=== PATIENT | male | born 1990 | race Caucasian/White ===

== ENCOUNTER 2016-10-30 15:29 | Emergency (ER) | payer BC ==
[2016-10-30 16:18] VITALS: BP 164/99
--- NOTE | 2016-10-30 16:53 | UC ---
General HPI - HPI Summary HPI Summary: 26 y/o male c/o "extreme fatigue", fever-like symptoms, and feeling nauseated which worsened today. Denies vomiting, changes in BM, headaches, myalgia, arthralgia, or skin changes. Patient is concerned about lyme disease, removed 3 ticks in the past week within 24 hours of attachment, removed one tick two weeks ago. - History of Current Complaint Chief Complaint: UCGeneralIllness Stated Complaint: MULTIPLE FLEA BITES Time Seen by Provider: 10/30/16 16:34 Hx Obtained From: Patient Onset/Duration: Sudden Onset Associated Signs & Symptoms: Positive: Fever, Nausea, Other - Fatigue. Negative : Back Pain, Cough, Dizziness, Headache, SOB - Allergy/Home Medications Allergies/Adverse Reactions: Allergies Allergy/AdvReac Type Severity Reaction Status Date / Time Sulfa Antibiotics Allergy Unknown Verified 10/30/16 16:19 Reaction Details Home Medications: Home Medications NK [No Home Medications Reported] 10/30/16 [History Confirmed 10/30/16] PMH/Surg Hx/FS Hx/Imm Hx Previously Healthy: Yes Endocrine History Of: Denies: Diabetes, Thyroid Disease Cardiovascular History Of: Reports: Hypertension - no tx Denies: Cardiac Disorders Respiratory History Of: Denies: COPD, Asthma GI/ History Of: Denies: Ulcer Neurological History Of: Denies: TIA, CVA, Dementia, Seizures, Migraine Psychological History Of: Denies: Anxiety, Depression, Bipolar Disorder, Schizophrenia, Post Traumatic Stress Disorder - Surgical History Surgical History: None - Family History Known Family History: Positive: Unknown - Social History Occupation: Employed Full-time Alcohol Use: Daily Substance Use Type: Marijuana Substance Use Comment - Amount & Last Used: daily Smoking Status (MU): Heavy Every Day Tobacco Smoker Type: Pipe Amount Used/How Often: 5 per day - Immunization History Most Recent Influenza Vaccination: denies Review of Systems Constitutional: Fever - "Fever-like symptoms", Fatigue Skin: Negative Eyes: Negative ENT: Nasal Discharge, Other - Nasal congestion Respiratory: Negative Cardiovascular: Negative Gastrointestinal: Other - Feelign nauseated Genitourinary: Negative Motor: Negative Neurovascular: Negative Musculoskeletal: Negative Neurological: Negative Psychological: Negative All Other Systems Reviewed And Are Negative: Yes Physical Exam Triage Information Reviewed: Yes Appearance: Well-Appearing, No Pain Distress Vital Signs: Initial Vital Signs Temp 98.7 F 10/30/16 16:09 Pulse 79 10/30/16 16:09 Resp 18 10/30/16 16:09 BP 164/99 10/30/16 16:09 Pulse Ox 100 10/30/16 16:09 Vital Signs Reviewed: Yes Eye Exam: Normal Eyes: Positive: Conjunctiva Clear ENT: Positive: Hearing grossly normal, Pharyngeal erythema, Nasal congestion, Nasal drainage, TMs normal Dental Exam: Normal Dental: Negative: Cervical Lymphadenopathy Neck exam: Normal Neck: Positive: Supple, Nontender, No Lymphadenopathy Respiratory Exam: Normal Respiratory: Positive: Chest non-tender, Lungs clear, Normal breath sounds Cardiovascular Exam: Normal Cardiovascular: Positive: RRR, No Murmur, Pulses Normal Abdominal Exam: Normal Abdomen Description: Positive: Nontender, No Organomegaly, Soft Bowel Sounds: Positive: Present Musculoskeletal Exam: Normal Musculoskeletal: Positive: Strength Intact Neurological: Positive: Alert, Muscle Tone Normal Skin Exam: Normal - Additional Comments No significant rashes observed. Discussed with the patient all the possible symptoms of Lyme disease. Course/Dx - Differential Dx - Multi-Symptom Provider Diagnoses: Fatigue. Tick bite. Viral syndrome Discharge - Discharge Plan Condition: Stable Disposition: HOME Patient Education Materials: Tick Bite (ED) Referrals: Selam Haider MD [Primary Care Provider] - [facility] [Outside] Additional Instructions: As discussed, take anti-histamines if feeling nauseated [facility]: (Examples of providers: Dr. Wyatt, Dr. Wilburn, Dr Delgado) Follow up with PCP if symptoms persist past 14 days, or if symptoms worsen. Follow up if any lyme disease symptoms develop as discussed.
== END 2016-10-30 17:33 | disposition home or self-care (01) ==
LOC: UCEAST 15:29
DX: B34.9 Viral infection, unspecified (principal); R53.83 Other fatigue; T14.8 Other injury of unspecified body region; W57.XXXA Bitten or stung by nonvenomous insect and other nonvenomous arthropods, initial encounter; Y93.9 Activity, unspecified; Y92.9 Unspecified place or not applicable; Z88.2 Allergy status to sulfonamides; F17.210 Nicotine dependence, cigarettes, uncomplicated
CPT/HCPCS: 36415; 86703; 99201; G0463